=== PATIENT | male | born 1985 | race African-American/Black ===

== ENCOUNTER 2023-03-06 11:58 | Outpatient (RCR) | payer OTHER, SELFPAY ==
--- NOTE | ~2023-03-06 | XR_ITS ---
EXAMINATION: XR FOOT, LEFT CLINICAL INFORMATION: Nonhealing wound of left great toe. COMPARISON: None available. TECHNIQUE: AP, lateral, and oblique views of the left foot. FINDINGS: Bony alignment and mineralization are normal. There has been a prior arthrodesis of the left first metatarsophalangeal joint, with intact orthopedic fixator plate and fixator screws. No hardware failure or loosening is seen. There is no fracture, dislocation or left ankle joint effusion. Boehler's angle is normal. There is no calcaneal spur. No abnormal bone erosion is noted. There is soft tissue gas within the medial, proximal aspect of the left great toe. No foreign body is seen. XR/XR foot LT min 3V IMPRESSION: There is orthopedic hardware consistent with a prior arthrodesis of the left first metatarsophalangeal joint. Please correlate with the patient's past surgical history. No hardware failure or loosening is seen. There is no abnormal bone erosion. There is soft tissue gas seen within the medial, proximal proximal left great toe, for which clinical correlation is recommended.
[2023-03-06 15:07] LABS: Estimated Average Glucose 80 mg/dL; Hemoglobin A1c % 4.4 %
[2023-03-06 15:09] LABS: Anion Gap 13 (12-20); Blood Urea Nitrogen 7 mg/dL (9-16); C Reactive Protein 0.16 mg/dL (< or = 0.50); Calcium 9.2 mg/dL (8.4-10.2); Carbon Dioxide 26 mmol/L (22-29); Chloride 108 mmol/L (96-108); Estimated Glomerular Filt Rate > 60; Glucose Random 69 mg/dL (60-115); Potassium 4.1 mmol/L (3.3-5.1); Sodium 143 mmol/L (135-145)
[2023-03-06 15:14] LABS: Hematocrit 44.6 % (42.0-52.0); Hemoglobin 14.3 g/dl (14.0-18.0); Mean Corpuscular HGB Conc 32.1 g/dl (31.0-36.0); Mean Corpuscular Hemoglobin 29.5 pg (27.0-33.0); Mean Platelet Volume 11.7 fL (9.4-12.4); Platelet Count 132 X10*3/uL (160-400); Red Blood Count 4.85 X10*6/uL (4.60-5.80); Red Cell Distribution Width 12.2 % (11.0-16.0)
[2023-03-06 15:15] LABS: WBC ABN SCTR FOR CBC 1
[2023-03-06 15:43] LABS: Erythrocyte Sedimentation Rate 2 MM/HR (0-15)
[2023-03-06 16:29] LABS: Band Neutrophils Percent 1 % (3-5); Basophils Percent Manual 2 % (0-2); Eosinophils Percent Manual 3 % (0-4); Lymphocytes Percent Manual 28 % (20-40); Monocytes Percent Manual 5 % (2-11); Neutrophils Percent Manual 61 % (45-73)
[2023-03-06 16:30] LABS: Platelet Estimate NORMAL (NORMAL); Platelet Morphology Comment NORMAL; RBC Morphology NORMAL
[2023-03-06 20:11] LABS: Basophils Abs Manual 0.1 X10*3/uL (0.0-0.2); Eosinophils Absolute Manual 0.2 X10*3/uL (0.0-0.4); Lymphocytes Absolute Manual 1.8 X10*3/uL (1.2-4.9); Monocytes Absolute Manual 0.3 X10*3/uL (0.1-1.2); Neutrophils Absolute Manual 4.1 X10*3/uL (2.0-8.3); White Blood Count 6.6 X10*3/uL (4.8-10.8)
== END 2023-04-04 16:25 | disposition home or self-care (01) ==
LOC: HO.WCC 11:58
PROVIDERS: Visit Provider Physician Assistant
DX: T81.31XA Disruption of external operation (surgical) wound, not elsewhere classified, initial encounter (principal); S97.112A Crushing injury of left great toe, initial encounter; G90.522 Complex regional pain syndrome I of left lower limb; Z87.891 Personal history of nicotine dependence
CPT/HCPCS: 11042; 36415; 73630; 80048; 83036; 84134; 85007; 85025; 85027; 85652; 86140; 87070; 87073; 87077; 87186; 87205; 99212; 99213

== ENCOUNTER 2023-05-02 08:07 | Outpatient (RCR) | payer OTHER, SELFPAY | END 2024-03-28 10:43 | disposition home or self-care (01) | LOC: HO.WCC 08:07 | PROVIDERS: Visit Provider Surgery | DX: L97.529 Non-pressure chronic ulcer of other part of left foot with unspecified severity (principal); L03.032 Cellulitis of left toe; T81.31XD Disruption of external operation (surgical) wound, not elsewhere classified, subsequent encounter; G90.522 Complex regional pain syndrome I of left lower limb; L60.9 Nail disorder, unspecified; Z79.2 Long term (current) use of antibiotics; Z87.891 Personal history of nicotine dependence | CPT/HCPCS: 10060; 10140; 11042; 87070; 87073; 87077; 87186; 87205; 88304; 97597; 99212; 99213 ==

== ENCOUNTER 2023-11-12 12:35 | Outpatient (REF) | payer OTHER, SELFPAY | END 2023-11-12 12:36 | disposition home or self-care (01) | LOC: HO.MRI 12:35 | PROVIDERS: Visit Provider Physician Assistant | DX: Z13.89 Encounter for screening for other disorder (principal) ==

== ENCOUNTER 2023-11-23 13:42 | Outpatient (REF) | payer OTHER, SELFPAY ==
--- NOTE | ~2023-11-23 | MR_ITS ---
EXAMINATION: MR FOOT WITHOUT AND WITH CONTRAST, LEFT CLINICAL INFORMATION: Work injury. Nonhealing great toe wound. Evaluate for osteomyelitis. COMPARISON: Outside left foot MRI dated 10/24/2022 and left foot radiographs dated 03/06/2023. TECHNIQUE: MRI of the left foot was performed before and after the intravenous administration of 8 mL Gadavist on a high-field scanner. FINDINGS: Interval removal of the previously seen first metatarsophalangeal and interphalangeal fusion hardware. Residual screw tracks are noted. There is increased T2 and decreased T1 signal throughout the first metatarsal head as well as the proximal and distal phalanges with postcontrast enhancement. Overlying soft tissue ulceration dorsally measuring up to 4.2 x 2.4 cm (AP x ML), with skin thickening and postcontrast enhancement. Findings likely represent chronic cellulitis with underlying osteomyelitis. No organized fluid collection or abscess formation. Increased T2 and slightly decreased T1 signal within the second metatarsal head where there is postcontrast marrow enhancement and mild periosteal edema. Findings could represent a stress reaction or osseous contusion. Osteomyelitis is thought less likely. Possible articular cartilage defect along the dorsal aspect of the second metatarsal head measuring up to 0.5 cm. Findings are new when compared to the prior examination. The visualized flexor and extensor tendons are intact. No transverse tendon tear or tendon retraction. Intact Lisfranc ligament. MR/MR foot LT wo/w con IMPRESSION: 1. Interval removal of the first metatarsophalangeal and interphalangeal fusion hardware with residual screw tracks. Prominent marrow edema throughout the first metatarsal head as well as the proximal and distal phalanges with overlying soft tissue ulceration and skin thickening/enhancement. Findings likely represent chronic cellulitis with underlying osteomyelitis. No organized fluid collection or abscess formation. 2. Marrow edema and enhancement within the second metatarsal head with mild periosteal edema and enhancement. Findings could represent a stress reaction or osseous contusion. Osteomyelitis is thought less likely. 3. Possible articular cartilage defect along the dorsal aspect of the second metatarsal head measuring up to 0.5 cm. Findings are new when compared to the prior examination.
[2023-11-23] MEDS: gadobutroL 10 ML VIAL IVPUSH (15:02)
== END 2023-11-23 13:43 | disposition home or self-care (01) ==
LOC: HO.MRI 13:42
PROVIDERS: Visit Provider Physician Assistant
DX: S97.111D Crushing injury of right great toe, subsequent encounter (principal); T81.31XD Disruption of external operation (surgical) wound, not elsewhere classified, subsequent encounter
CPT/HCPCS: 73720; A9585

== ENCOUNTER 2023-12-12 14:08 | Outpatient (AMB) | payer OTHER, SELFPAY ==
[2023-12-12 14:23] VITALS: PULSE 82; TEMP 37.2; O2SAT 98; BMI 24.0
--- NOTE | 2023-12-12 14:23 | MHC.OFFVIS ---
Vital Signs 12/12/23 14:23 Height 6 ft 3 in Weight 192 lb BMI 24.0 Pulse 82 Pulse Source Pulse Oximeter Temp 99.0 F Temp Source Oral Pulse Oximetry (%) 98 Oxygen Delivery Method Room Air Intake Visit Reasons: Ref.[place] [facility],osteomyelitis Allergies Sulfa (Sulfonamide Antibiotics) Allergy (Unknown, Verified 12/12/23 14:24) Unknown HPI HPI Ref.[place] [facility],osteomyelitis: Details: He was referred new drainage medial nail bed,great toe left He has pain side of foot. He has OM first ray including metatarsal head and had recent hardware removal. He was started on Keflex. He had staph aureus and serratia marcescans. [facility] Medical History (Updated 12/17/23 @ 16:52 by Dior Leonardo MD) Osteomyelitis Review of Systems Const All systems reviewed & are unremarkable except as noted in HPI and below Physical Exam Vital Signs: Last Vital Signs Temp 99.0 F 12/12/23 14:23 Pulse 82 12/12/23 14:23 Pulse Ox 98 12/12/23 14:23 Oxygen Delivery Method Room Air 12/12/23 14:23 BMI result Body Mass Index 24.0 Const Other: General: cooperative HEENT Head: Yes normal to inspection Face and sinus: Yes normal facial exam Mouth: Normal oral and palatal mucosa present Teeth and gingiva: dentition normal Eyes General: appearance normal, both eyes and all related structures Pupils: Equal, round and reactive pupils present Resp Effort & Inspection: normal respiratory effort Cardio Rate: regular rate Rhythm: regular rhythm GI Palpation (GI): Soft to palpation and nontender General: Yes no CVA tenderness Back/Spine/Pelvis Back: no CVA tenderness Skin General skin exam: no rashes or lesions noted Neuro General: moves all extremities Cranial nerves: Yes Equal, round and reactive pupils present Extrem Other: yellow leaking area left great toe General: Yes normal to inspection Psych Appearance: grossly normal Assessment & Plan Assessment & Plan (1) Osteomyelitis: Comment: He has been seeing Wound Clinic and has chronic infection. He also has some venous stasis. Code(s): M86.9 - Osteomyelitis, unspecified Category: Medical Plan: Levaquin cover above wound one week. Coding Level of Care Code New Pt Level 3 (60665) Diagnoses Osteomyelitis M86.9
== END 2023-12-12 15:01 | disposition home or self-care (01) ==
PROVIDERS: Visit Provider Internal Medicine
DX: M86.9 Osteomyelitis, unspecified (principal)
CPT/HCPCS: 99203

== ENCOUNTER → 2023-12-12 14:08 | Outpatient (BNVA) | payer OTHER, SELFPAY | PROVIDERS: Visit Provider Internal Medicine | DX: M86.9 Osteomyelitis, unspecified (principal); I87.8 Other specified disorders of veins | CPT/HCPCS: 99202 ==

== ENCOUNTER 2023-12-24 13:11 | Outpatient (REF) | payer OTHER, SELFPAY ==
[2023-12-24 14:15] LABS: MANUAL DIFF FLAG NO
[2023-12-24 14:38] LABS: Basophils Percent Auto 0.6 % (0-2); Eosinophils Absolute Auto 0.1 X10*3/uL (0.0-0.4); Eosinophils Percent Auto 1.1 % (0-4); Hematocrit 43.5 % (42.0-52.0); Hemoglobin 14.6 g/dl (14.0-18.0); Imm Gran Abs Auto 0.02 X10*3/uL (0.00-0.03); Imm Gran Pct Auto 0.3 % (0.0-0.4); Lymphocytes Percent Auto 31.4 % (20-40); Mean Corpuscular HGB Conc 33.6 g/dl (31.0-36.0); Mean Corpuscular Hemoglobin 30.4 pg (27.0-33.0); Mean Corpuscular Volume 90.6 fL (80.0-98.0); Mean Platelet Volume 11.1 fL (9.4-12.4); Monocytes Absolute Auto 0.5 X10*3/uL (0.1-1.2); Monocytes Percent Auto 7.2 % (2-11); Neutrophils Absolute Auto 3.9 x10*3/uL (2.0-8.3); Neutrophils Percent Auto 59.4 % (45-73); Platelet Count 166 X10*3/uL (160-400); Red Cell Distribution Width 11.6 % (11.0-16.0); White Blood Count 6.5 X10*3/uL (4.8-10.8)
[2023-12-24 15:03] LABS: Anion Gap 11 (12-20); Blood Urea Nitrogen 15 mg/dL (9-16); Calcium 9.4 mg/dL (8.4-10.2); Carbon Dioxide 26 mmol/L (22-29); Chloride 106 mmol/L (96-108); Estimated Glomerular Filt Rate > 60; Glucose Random 112 mg/dL (60-115); Sodium 139 mmol/L (135-145)
== END 2023-12-24 13:12 | disposition home or self-care (01) ==
LOC: HO.LAB 13:11
PROVIDERS: Visit Provider Internal Medicine
DX: M86.9 Osteomyelitis, unspecified (principal)
CPT/HCPCS: 36415; 80048; 85025; 99212

== ENCOUNTER 2023-12-24 13:11 | Outpatient (AMB) | payer OTHER, SELFPAY ==
--- NOTE | 2023-12-24 13:24 | MHC.OFFVIS ---
Vital Signs 12/24/23 13:25 Height 6 ft 3 in Weight 198 lb BMI 24.7 Pulse 103 H Pulse Source Pulse Oximeter Pulse Oximetry (%) 98 Intake Visit Reasons: F/U,2 wks Allergies Sulfa (Sulfonamide Antibiotics) Allergy (Unknown, Verified 12/24/23 13:25) Unknown HPI HPI F/U,2 wks: Details: He is feeling fairly well but anxious to start medication for infection. [facility] Medical History Osteomyelitis Review of Systems Const All systems reviewed & are unremarkable except as noted in HPI and below Physical Exam Vital Signs: Last Vital Signs Pulse 103 H 12/24/23 13:25 Pulse Ox 98 12/24/23 13:25 BMI result Body Mass Index 24.7 Const Other: General: cooperative Orientation/consciousness: patient oriented x3 HEENT Head: Yes normal to inspection Mouth: Normal oral and palatal mucosa present Eyes General: appearance normal, both eyes and all related structures Pupils: Equal, round and reactive pupils present Resp Effort & Inspection: normal respiratory effort Cardio Rate: regular rate Rhythm: regular rhythm GI Palpation (GI): Soft to palpation and nontender General: Yes no CVA tenderness Back/Spine/Pelvis Back: no CVA tenderness Skin General skin exam: no rashes or lesions noted Neuro General: patient oriented x3 Cranial nerves: Yes CN's II-XII intact bilaterally and Yes Equal, round and reactive pupils present Extrem Other: left foot swollen Psych Appearance: grossly normal Assessment & Plan Assessment & Plan (1) Osteomyelitis: Comment: He has been seeing Wound Clinic and has chronic infection. He also has some venous stasis. Code(s): M86.9 - Osteomyelitis, unspecified Category: Medical (2) Osteomyelitis: Comment: He has been seeing Wound Clinic and has chronic infection. He also has some venous stasis. Code(s): M86.9 - Osteomyelitis, unspecified Category: Medical Plan: 6 weeks IV antibiotics,Ertapenem for 42 days. See in two weeks. Plan na Orders: Orders Complete Blood Count Auto Diff 12/24/23 M86.9 - Osteomyelitis, unspecified Basic Metabolic Panel 12/24/23 M86.9 - Osteomyelitis, unspecified IR cvc insert peripheral 12/24/23 M86.9 - Osteomyelitis, unspecified Referrals Infusion Center Notification M86.9 - Osteomyelitis, unspecified Coding Level of Care Code Est Pt Level 3 (38784) Diagnoses Osteomyelitis M86.9
[2023-12-24 13:25] VITALS: PULSE 103; O2SAT 98; BMI 24.7
== END 2023-12-24 14:01 | disposition home or self-care (01) ==
LOC: HO.HID 13:11
PROVIDERS: Visit Provider Internal Medicine
DX: M86.9 Osteomyelitis, unspecified (principal)
CPT/HCPCS: 99213

== ENCOUNTER 2024-01-23 13:34 | Outpatient (REF) | payer OTHER, SELFPAY ==
--- NOTE | ~2024-01-23 | IR_ITS ---
CLINICAL HISTORY: IV antibiotics PROCEDURES: 1. Real-time ultrasound-guided access into the right brachial vein after documentation of selected vessel patency, and permanent imaging storing in the patient record. 2. Placement of a 4 fr 45 cm, single lumen PASV power PICC CLINICIANS: Justin Comer PA-C MEDICATIONS: -Lidocaine 1% 10 mL SQ. -Antibiotics: None. Complications: None. Estimated blood loss: <5 ml Specimens: None. Contrast: None. Fluoroscopy time: 2.8 min Procedure note: The procedure, risks, benefits, and alternatives were carefully explained to the patient and written informed consent was obtained. The patient was placed supine on the fluoroscopy table. A timeout was performed. The right arm was prepped and draped in usual sterile fashion. Using ultrasound and fluoroscopic guidance, venous access was achieved into the brachial vein with a micropuncture set. A peel-away sheath was advanced over the wire. The 0.018 inch wire was advanced into the right atrium. A 4 fr, 45 cm, single lumen power PICC was advanced over the wire, with its tip in the cavoatrial junction. The wire was removed. The catheter was tested and secured with a StatLock dressing. A permanent ultrasound image and chest fluoroscopic image was saved to PACS. The patient was stable after the procedure and was transferred to the floor. FINDINGS: 1. Patent right brachial vein 2. Placement of a 4 fr 45 cm, single lumen PASV power PICC IR/IR cvc insert peripheral IMPRESSION: Placement of a 4 fr 45 cm, single lumen PASV power PICC PLAN: -The catheter may be used immediately. This procedure was performed by Justin Comer PA-C, and directly supervised by Dr. Shah
--- NOTE | 2024-01-23 15:21 | PM.PROC ---
Brief Operative Note Date of procedure: 01/23/24 Pre-op diagnosis: Needs IV antibiotics Post-op diagnosis: same Procedure: RUE SL PICC Right brachial 45 cm SL PASV PICC placed using US and Fluoro. Tip at cavoatrial junction. Ok for use. Anesthesia: local
== END 2024-01-23 13:35 | disposition home or self-care (01) ==
LOC: HO.RADIR 13:34
PROVIDERS: Visit Provider Internal Medicine
DX: M86.9 Osteomyelitis, unspecified (principal)
CPT/HCPCS: 36573; C1751

== ENCOUNTER → 2024-01-23 13:34 | Outpatient (BNV) | payer OTHER, SELFPAY | PROVIDERS: Visit Provider Physician Assistant Surgical | DX: M86.9 Osteomyelitis, unspecified (principal) | CPT/HCPCS: 36573 ==

== ENCOUNTER 2024-01-30 13:20 | Outpatient (AMB) | payer OTHER, SELFPAY ==
--- NOTE | 2024-01-30 13:04 | MHC.OFFVIS ---
Vital Signs 01/30/24 13:20 Height 6 ft 3 in Weight 200 lb BMI 25.0 Pulse 84 Pulse Source Pulse Oximeter Temp 97.9 F Temp Source Oral Pulse Oximetry (%) 96 Oxygen Delivery Method Room Air Intake Visit Reasons: 1 week follow up picc line Allergies Sulfa (Sulfonamide Antibiotics) Allergy (Unknown, Verified 01/30/24 13:21) Unknown HPI HPI 1 week follow up picc line: Details: He feels well, He has been on Ertapenem for a week. He has MSSA and serratia marcescans from 11/25, [facility] Medical History Osteomyelitis Review of Systems Const All systems reviewed & are unremarkable except as noted in HPI and below Physical Exam Vital Signs: Last Vital Signs Temp 97.9 F 01/30/24 13:20 Pulse 84 01/30/24 13:20 Pulse Ox 96 01/30/24 13:20 Oxygen Delivery Method Room Air 01/30/24 13:20 BMI result Body Mass Index 25.0 Const Other: General: cooperative HEENT Head: Yes normal to inspection Face and sinus: Yes normal facial exam Mouth: Normal oral and palatal mucosa present Teeth and gingiva: dentition normal Eyes General: appearance normal, both eyes and all related structures Pupils: Equal, round and reactive pupils present Resp Effort & Inspection: normal respiratory effort Cardio Rate: regular rate Rhythm: regular rhythm GI Palpation (GI): Soft to palpation and nontender General: Yes no CVA tenderness Back/Spine/Pelvis Back: no CVA tenderness Skin General skin exam: no rashes or lesions noted Neuro General: moves all extremities Cranial nerves: Yes Equal, round and reactive pupils present Extrem General: Yes normal to inspection Psych Appearance: grossly normal Assessment & Plan Assessment & Plan (1) Osteomyelitis: Comment: He has been seeing Wound Clinic and has chronic infection. He also has some venous stasis. Code(s): M86.9 - Osteomyelitis, unspecified Category: Medical Plan: Continue six weeks Ertapenem. See in two to three weeks. Coding Level of Care Code Est Pt Level 3 (26583) Diagnoses Osteomyelitis M86.9
[2024-01-30 13:20] VITALS: PULSE 84; TEMP 36.6; O2SAT 96; BMI 25.0
== END 2024-01-30 14:23 | disposition home or self-care (01) ==
LOC: HO.HID 13:20
PROVIDERS: Visit Provider Internal Medicine
DX: M86.9 Osteomyelitis, unspecified (principal)
CPT/HCPCS: 99213

== ENCOUNTER → 2024-01-30 13:20 | Outpatient (BNVA) | payer OTHER, SELFPAY | PROVIDERS: Visit Provider Internal Medicine | DX: M86.9 Osteomyelitis, unspecified (principal) | CPT/HCPCS: 99212 ==

== ENCOUNTER 2024-02-20 13:09 | Outpatient (AMB) | payer OTHER, SELFPAY ==
[2024-02-20 13:13] VITALS: PULSE 84; O2SAT 98; BMI 24.7
--- NOTE | 2024-02-20 13:13 | MHC.OFFVIS ---
Vital Signs 02/20/24 13:13 Height 6 ft 3 in Weight 198 lb BMI 24.7 Pulse 84 Pulse Source Pulse Oximeter Pulse Oximetry (%) 98 Oxygen Delivery Method Room Air Intake Visit Reasons: 4 week fu picc line antibiotics Allergies Sulfa (Sulfonamide Antibiotics) Allergy (Unknown, Verified 02/20/24 13:15) Unknown HPI HPI 4 week fu picc line antibiotics: Details: He says foot look about the same [facility] Medical History Osteomyelitis Physical Exam Vital Signs: Last Vital Signs Pulse 84 02/20/24 13:13 Pulse Ox 98 02/20/24 13:13 Oxygen Delivery Method Room Air 02/20/24 13:13 BMI result Body Mass Index 24.7 Const Other: General: cooperative Orientation/consciousness: patient oriented x3 HEENT Head: Yes normal to inspection Face and sinus: Yes normal facial exam Mouth: Normal oral and palatal mucosa present Teeth and gingiva: dentition normal Eyes General: appearance normal, both eyes and all related structures Pupils: Equal, round and reactive pupils present Resp Effort & Inspection: normal respiratory effort Cardio Rate: regular rate Rhythm: regular rhythm GI Palpation (GI): Soft to palpation and nontender General: Yes no CVA tenderness Back/Spine/Pelvis Back: no CVA tenderness Skin General skin exam: no rashes or lesions noted Neuro General: patient oriented x3 and moves all extremities Cranial nerves: Yes Equal, round and reactive pupils present Extrem General: Yes normal to inspection Psych Appearance: grossly normal Assessment & Plan Assessment & Plan (1) Osteomyelitis: Comment: He has been seeing Wound Clinic and has chronic infection. He also has some venous stasis. Code(s): M86.9 - Osteomyelitis, unspecified Category: Medical Plan: Plan per protcol OM See as needed. Orders: Orders IR cvc remove any age 0702/20/24 M86.9 - Osteomyelitis, unspecified Coding Level of Care Code Est Pt Level 4 (00501) Diagnoses Osteomyelitis M86.9
== END 2024-02-20 13:42 | disposition home or self-care (01) ==
LOC: HO.HID 13:09
PROVIDERS: Visit Provider Internal Medicine
DX: M86.9 Osteomyelitis, unspecified (principal)
CPT/HCPCS: 99214

== ENCOUNTER → 2024-02-20 13:09 | Outpatient (BNVA) | payer OTHER, SELFPAY | PROVIDERS: Visit Provider Internal Medicine | DX: M86.9 Osteomyelitis, unspecified (principal) | CPT/HCPCS: 99212 ==

== ENCOUNTER 2024-03-05 14:54 | Outpatient (AMB) | payer OTHER, SELFPAY ==
--- NOTE | 2024-03-05 14:54 | MHC.OFFVIS ---
Vital Signs 03/05/24 14:59 Height 6 ft 3 in Weight 196 lb BMI 24.5 Pulse 75 Pulse Source Pulse Oximeter Temp 98.2 F Temp Source Oral Pulse Oximetry (%) 98 Intake Visit Reasons: antibiotic follow up Allergies Sulfa (Sulfonamide Antibiotics) Allergy (Unknown, Verified 03/05/24 15:00) Unknown HPI HPI antibiotic follow up: Details: He still has drainage near nail. He is going to get nail removed He has completed IV antibiotics and no new cultures came up. [facility] Medical History Osteomyelitis Review of Systems Const All systems reviewed & are unremarkable except as noted in HPI and below Physical Exam Vital Signs: Last Vital Signs Temp 98.2 F 03/05/24 14:59 Pulse 75 03/05/24 14:59 Pulse Ox 98 03/05/24 14:59 BMI result Body Mass Index 24.5 Const General: cooperative Orientation/consciousness: patient oriented x3 HEENT Head: Yes normal to inspection Mouth: Normal oral and palatal mucosa present Eyes General: appearance normal, both eyes and all related structures Pupils: Equal, round and reactive pupils present Resp Effort & Inspection: normal respiratory effort Cardio Rate: regular rate Rhythm: regular rhythm GI Palpation (GI): Soft to palpation and nontender General: Yes no CVA tenderness Back/Spine/Pelvis Back: no CVA tenderness Skin Other: foot some medial drainage General skin exam: no rashes or lesions noted Neuro General: patient oriented x3 Cranial nerves: Yes CN's II-XII intact bilaterally and Yes Equal, round and reactive pupils present Extrem Other: Psych Appearance: grossly normal Assessment & Plan Assessment & Plan (1) Osteomyelitis: Comment: He has been seeing Wound Clinic and has chronic infection. He also has some venous stasis. Code(s): M86.9 - Osteomyelitis, unspecified Category: Medical Plan: He has reached maximal antibiotic benefit. May stop antibiotics. Follow up Surgery See prn need. Coding Level of Care Code Est Pt Level 3 (14479) Diagnoses Osteomyelitis M86.9
[2024-03-05 14:59] VITALS: PULSE 75; TEMP 36.8; O2SAT 98; BMI 24.5
== END 2024-03-05 15:44 | disposition home or self-care (01) ==
LOC: HO.HID 14:54
PROVIDERS: Visit Provider Internal Medicine
DX: M86.9 Osteomyelitis, unspecified (principal)
CPT/HCPCS: 99213

== ENCOUNTER → 2024-03-05 14:54 | Outpatient (BNVA) | payer OTHER, SELFPAY | PROVIDERS: Visit Provider Internal Medicine | DX: M86.9 Osteomyelitis, unspecified (principal); I87.8 Other specified disorders of veins | CPT/HCPCS: 99212 ==

== ENCOUNTER 2024-03-25 11:08 | Outpatient (AMB) | payer OTHER, SELFPAY ==
[2024-03-25 11:11] VITALS: BP 143/74; PULSE 66; O2SAT 97; BMI 23.5
--- NOTE | 2024-03-25 11:11 | MHC.OFFVIS ---
Vital Signs 03/25/24 11:11 Height 6 ft 3 in Weight 188 lb BMI 23.5 BP 143/74 H Blood Pressure Location Rt brachial Position Sitting Pulse 66 Pulse Source Pulse Oximeter Pulse Oximetry (%) 97 Oxygen Delivery Method Room Air Intake Visit Reasons: LEFT GREAT BIG TOE WOUND Allergies Sulfa (Sulfonamide Antibiotics) Allergy (Unknown, Verified 03/05/24 15:00) Unknown HPI Comments Details: Florentino echeverria is a very pleasant 38-year-old male who presents to the office today for evaluation management of his chronic left foot pain. Patient has suffered a crush injury while at work in 2020. He subsequently underwent 6 surgeries including hardware removal twice due to infection. Currently there is no hardware remaining. November of this year underwent MRI which showed osteomyelitis. He had several weeks of antibiotics, last dose of IV antibiotics was 03/04/2024 where he was then cleared by Infectious Disease. He would follow up with surgery, currently awaiting repeat MRI to evaluate status of this osteomyelitis. He has follow up with surgery at the end of April, they have discussed amputation. Pain today is rated a 7/10, constant and worse in the middle of the night. Reports significant pain even with light touch and up until recently very difficult wearing anything other than walking boot. He is currently taking oxycodone and gabapentin for the pain with minimal improvement. Previously has tried Tylenol ibuprofen without improvement. In terms of muscle damage condition is described as spasming, stabbing, sharp, shooting, shocking, cramping, throbbing, tingling, pins and needles. Pain is negatively impacting patient's enjoyment of life, general activity, mood, normal work, recreational activities, relationships with people, sleep and walking [facility] Medical History Osteomyelitis Review of Systems Const All systems reviewed & are unremarkable except as noted in HPI and below Physical Exam Vital Signs: Last Vital Signs Pulse 66 03/25/24 11:11 BP 143/74 H 03/25/24 11:11 Pulse Ox 97 03/25/24 11:11 Oxygen Delivery Method Room Air 03/25/24 11:11 BMI result Body Mass Index 23.5 General: awake, alert, oriented. Answers questions appropriately. Fully engaged in examination. Skin: warm, dry, intact HEENT: Normocephalic. Hearing intact. Cardiac: External chest normal in appearance. Respiratory: No cough, audible wheezing or stridor. Abdomen: without gross distension. MS: Left great toe with notable skin discoloration, allodynia, trophic changes in the nail. Tenderness to palpation. Neurological: Oriented to person, place, time and situation. Thought process intact. No gait abnormalities appreciated. Psychiatric: Appropriate mood and affect. Good judgment and insight. Results Reviewed Results Reviewed: 11/23/23 MR FOOT WITHOUT AND WITH CONTRAST, LEFT FINDINGS: Interval removal of the previously seen first metatarsophalangeal and interphalangeal fusion hardware. Residual screw tracks are noted. There is increased T2 and decreased T1 signal throughout the first metatarsal head as well as the proximal and distal phalanges with postcontrast enhancement. Overlying soft tissue ulceration dorsally measuring up to 4.2 x 2.4 cm (AP x ML), with skin thickening and postcontrast enhancement. Findings likely represent chronic cellulitis with underlying osteomyelitis. No organized fluid collection or abscess formation. Increased T2 and slightly decreased T1 signal within the second metatarsal head where there is postcontrast marrow enhancement and mild periosteal edema. Findings could represent a stress reaction or osseous contusion. Osteomyelitis is thought less likely. Possible articular cartilage defect along the dorsal aspect of the second metatarsal head measuring up to 0.5 cm. Findings are new when compared to the prior examination. The visualized flexor and extensor tendons are intact. No transverse tendon tear or tendon retraction. Intact Lisfranc ligament. IMPRESSION: 1. Interval removal of the first metatarsophalangeal and interphalangeal fusion hardware with residual screw tracks. Prominent marrow edema throughout the first metatarsal head as well as the proximal and distal phalanges with overlying soft tissue ulceration and skin thickening/enhancement. Findings likely represent chronic cellulitis with underlying osteomyelitis. No organized fluid collection or abscess formation. 2. Marrow edema and enhancement within the second metatarsal head with mild periosteal edema and enhancement. Findings could represent a stress reaction or osseous contusion. Osteomyelitis is thought less likely. 3. Possible articular cartilage defect along the dorsal aspect of the second metatarsal head measuring up to 0.5 cm. Findings are new when compared to the prior examination. Assessment & Plan Assessment & Plan (1) Osteomyelitis: Comment: He has been seeing Wound Clinic and has chronic infection. He also has some venous stasis. Code(s): M86.9 - Osteomyelitis, unspecified Category: Medical (2) CRPS (complex regional pain syndrome type II): Code(s): G56.40 - Causalgia of unspecified upper limb Category: Medical Plan Patient presents the office today for evaluation management of his chronic left foot pain. History, physical exam and provocative testing consistent with CRPS Discussed options for treatment including diagnostic interventional testing, peripheral nerve stimulation with [employer], and more permanent neuromodulation lead spinal cord stimulation. Informational pamphlets provided. Follow up with MRIs planned 04/2024. Follow-up with surgery as planned after MRI. If no surgical intervention is warranted we will consider spinal cord stimulation trial with [employer]. Patient is aware that this would require mental health evaluation, he was given a pamphlet for [employer] today. Pending review of MRI, patient may require repeat blood work or clearance by Infectious Disease prior to proceeding with SCS. . All questions and concerns have been answered and patient agrees with the plan. Follow up after surgical evaluation, sooner if needed. Coding Level of Care Code New Pt Level 4 (47186) Diagnoses Osteomyelitis M86.9 CRPS (complex regional pain syndrome type II) G56.40
== END 2024-03-25 12:04 | disposition home or self-care (01) ==
PROVIDERS: PCP Orthopaedic Surgery; Referring Provider Physician Assistant; Visit Provider Registered Nurse Emergency
DX: M86.9 Osteomyelitis, unspecified (principal); G56.40 Causalgia of unspecified upper limb
CPT/HCPCS: 99204

== ENCOUNTER → 2024-03-25 11:08 | Outpatient (BNVA) | payer OTHER, SELFPAY | PROVIDERS: Referring Provider Physician Assistant; Visit Provider Registered Nurse Emergency | DX: M86.9 Osteomyelitis, unspecified (principal); G56.40 Causalgia of unspecified upper limb | CPT/HCPCS: 99202 ==